=== PATIENT | male | born 1960 | race Caucasian/White ===

== ENCOUNTER 2016-11-12 10:45 | Emergency (ER) | payer OTHER ==
[2016-11-12 11:01] VITALS: BP 136/64; PULSE 65; RESP 16; TEMP 97.7; O2SAT 94
--- NOTE | 2016-11-12 11:21 | UCPHY ---
H & P Time Seen by Provider: 11/12/16 11:02 Patient Type: New HPI/ROS: CHIEF COMPLAINT: URI flu-like symptoms x3 days HISTORY OF PRESENT ILLNESS: 56-year-old immunocompetent male, nonsmoker, works as a senior information security engineer at [employer], up-to-date influenza vaccination complaining of 3 days of sinus congestion, sore throat, myalgias. No fever no chills. No nausea no vomiting. No chest pain. No back pain. No abdominal pain. No rash. REVIEW OF SYSTEMS: A ten point review of systems was performed and is negative with the exception of the items mentioned in the HPI PAST MEDICAL & SURGICAL HISTORY: No pertinent medical or surgical history SOCIAL HISTORY: Nonsmoker PHYSICAL EXAM (Prior to examination, patient consented to physical exam, hands were washed and my usual and customary physical exam procedures followed) 1) GENERAL: Well-developed, well-nourished, alert and oriented. Appears nontoxic 2) HEAD: Normocephalic, atraumatic 3) HEENT: Pupils equal, round, reactive to light bilaterally. Sclera anicteric. Nasopharynx: Congestion. Oropharynx: No tonsillar enlargement or tonsillar exudate uvula midline no trismus no drooling. Ears bilaterally with normal tympanic membranes. 4) NECK: Full range of motion, no meningeal signs. 5) LUNGS: Clear auscultation bilaterally, no wheezes, no rhonchi, no retractions. 6) HEART: Regular rate and rhythm, no murmur, no heave, no gallop. 7) ABDOMEN: No guarding, no rebound, no focal tenderness, 8) MUSCULOSKELETAL: Moving all extremities. 9) BACK: no visual or palpable abnormality. 10) SKIN: No rash, no petechiae. 11) Psychiatric: Patient is oriented X 3, there is no agitation. DIFFERENTIAL DIAGNOSIS: In no particular order including but limited to influenza, acute sinusitis, bronchitis Smoking Status: Never smoked Constitutional: Initial Vital Signs Temperature (C) 36.5 C 11/12/16 10:57 Heart Rate 65 11/12/16 10:57 Respiratory Rate 16 11/12/16 10:57 Blood Pressure 136/64 H 11/12/16 10:57 O2 Sat (%) 94 11/12/16 10:57 O2 Delivery Mode Room Air Allergies/Adverse Reactions: No Known Allergies Allergy (Unverified 11/12/16 10:56) Home Medications: Medication Instructions Recorded AZITHROMYCIN [Z-PACK] 500 mg PO DAILY #1 packet 11/12/16 Lexapro 11/12/16 MDM/Departure - MDM ED Course/Re-evaluation: No signs of respiratory distress. Doubt sepsis. I do not think that hospitalization indicated. Given usual customary URI and sinusitis precautions instructions. - Depart Disposition: Home, Routine, Self-Care Clinical Impression: Sinusitis Qualifiers: Sinusitis location: maxillary Chronicity: acute Recurrence: non-recurrent Qualifier Code: (J01.00) Acute maxillary sinusitis, unspecified Condition: Good Instructions: Sinusitis (ED) Additional Instructions: Return to the emergency department immediately for change in breathing habits, change in voice, change in swallowing habits, change in mental status, or any other symptoms that concern you. Stand Alone Forms: Work Excuse Prescriptions: AZITHROMYCIN [Z-PACK] 500 mg PO DAILY #1 packet Referrals: Sandra Gonzalez MD [Primary Care Provider] - 5-7 days, call for appt. - PQRS PQRS Measurement: Not applicable
== END 2016-11-12 11:48 | disposition home or self-care (01) ==
LOC: CED 10:45
DX: J01.00 Acute maxillary sinusitis, unspecified (principal)
CPT/HCPCS: 87400-PO; G0463-PO

== ENCOUNTER → 2018-02-22 | Outpatient (CLI) | payer OTHER | LOC: CIMAGING 15:56 | PROVIDERS: ATTEND Internal Medicine | DX: M85.841 Other specified disorders of bone density and structure, right hand (principal); M18.11 Unilateral primary osteoarthritis of first carpometacarpal joint, right hand | CPT/HCPCS: 73130-PO ==

== ENCOUNTER → 2018-04-26 | Outpatient (CLI) | payer OTHER ==
[~2018-04-26] MED LIST: GADOBUTROL 10 ML VIAL IVP ONE
== END ==
LOC: FIMAGING 12:13
PROVIDERS: ATTEND Internal Medicine
DX: M85.841 Other specified disorders of bone density and structure, right hand (principal)
CPT/HCPCS: A9585

== ENCOUNTER → 2018-07-26 | Outpatient (CLI) | payer OTHER | LOC: BRMIMAGING 15:10 | DX: M17.12 Unilateral primary osteoarthritis, left knee (principal) | CPT/HCPCS: 73562-PO ==